=== PATIENT | male | born 1975 | race Caucasian/White ===

== ENCOUNTER 2021-10-29 17:11 | Emergency (ER) | payer BC, MEDICAID, OTHER ==
--- NOTE | 2021-10-29 18:07 | EDM.PDOC ---
ED HPI GENERAL MEDICAL PROBLEM - General Chief Complaint: General Stated Complaint: covid positive /fatigue and fever no appetite Time Seen by Provider: 10/29/21 18:00 Source of Information: Reports: Patient History Limitations: Reports: No Limitations - History of Present Illness INITIAL COMMENTS - FREE TEXT/NARRATIVE: 46-year-old male diagnosed with Covid 5 days ago, has had symptoms for 7 days. He is scheduled for monoclonal antibody therapy tomorrow. He has wheezing but is not significantly short of breath, O2 saturations 92 to 97%. He called the outpatient clinic this afternoon to find out what time he was supposed to come in and he commented to them that he "slept all day and feels awful, even had some brief stool incontinence in bed" so they told him to come to the emergency room. He looks ill but is physically stable. Onset: Gradual Duration: Day(s): (Symptoms for 7 days) Associated Symptoms: Reports: Cough, Fever/Chills, Malaise, Shortness of Breath, Weakness. Denies: Nausea/Vomiting - Related Data Allergies Allergy/AdvReac Type Severity Reaction Status Date / Time No Known Allergies Allergy Verified 10/29/21 17:41 Home Meds: Home Meds Azithromycin [Zithromax] 250 mg PO DAILY 10/29/21 [History] Sertraline [Zoloft] 50 mg PO BEDTIME 10/29/21 [History] Vitamin D3 5000 5,000 units PO DAILY 10/29/21 [History] dilTIAZem HCL [Dilt-Xr] 180 mg PO DAILY 10/29/21 [History] lisinopriL [Lisinopril] 40 mg PO DAILY 10/29/21 [History] methylPREDNISolone [Methylprednisolone] 4 mg PO TID 10/29/21 [History] Past Medical History Cardiovascular History: Reports: Hypertension Psychiatric History: Reports: Depression - Infectious Disease History Infectious Disease History: Reports: Novel Coronavirus - Past Surgical History Musculoskeletal Surgical History: Reports: Arthroscopic Knee Social & Family History - Tobacco Use Tobacco Use Status *Q: Never Tobacco User - Recreational Drug Use Recreational Drug Use: No ED ROS GENERAL - Review of Systems Review Of Systems: See Below Constitutional: Reports: Fever, Chills, Malaise, Decreased Appetite HEENT: Denies: Throat Pain Respiratory: Reports: Shortness of Breath, Wheezing, Cough Cardiovascular: Denies: Chest Pain GI/Abdominal: Reports: Diarrhea. Denies: Abdominal Pain Musculoskeletal: Reports: Muscle Pain (Generalized muscle aches) Skin: Reports: No Symptoms Neurological: Reports: Weakness Psychiatric: Reports: No Symptoms ED EXAM, GENERAL - Physical Exam Exam: See Below Exam Limited By: No Limitations General Appearance: Alert, No Apparent Distress Head: Atraumatic Respiratory/Chest: Wheezing (Diffuse expiratory wheezes, underlying good air movement) Cardiovascular: Regular Rate, Rhythm. No: Tachycardia GI/Abdominal: Soft, Non-Tender Extremities: Normal Inspection Neurological: Alert, Oriented Psychiatric: Flat Affect Skin Exam: Warm, Dry Course - Vital Signs Last Recorded V/S: Last Vital Signs Temp 95.8 F L 10/29/21 17:34 Pulse 97 10/29/21 17:34 Resp 16 10/29/21 17:34 BP 107/69 10/29/21 17:34 Pulse Ox 92 L 10/29/21 17:34 - Re-Assessments/Exams Free Text/Narrative Re-Assessment/Exam: 10/29/21 18:11 Patient was discharged with an albuterol inhaler to use 2 puffs every 4-6 hours. He can continue taking his Zithromax and should return for his monoclonal antibody therapy tomorrow. He can return sooner if he develops significant increase in shortness of breath. Departure - Departure Time of Disposition: 18:15 Disposition: Home, Self-Care 01 Clinical Impression: COVID-19 - Discharge Information Instructions: COVID-19 Referrals: Héctor Chavez Sr, MD [Primary Care Provider] - Forms: ED Department Discharge Care Plan Goals: Continue your medications, return if significant increase in shortness of breath otherwise return tomorrow for a monoclonal antibody therapy as scheduled. Sepsis Event Note (ED) - Evaluation Sepsis Screening Result: No Definite Risk - Focused Exam Vital Signs: Vital Signs Temp Pulse Resp BP Pulse Ox 10/29/21 17:34 95.8 F L 97 16 107/69 92 L
== END 2021-10-29 18:34 | disposition home or self-care (01) ==
LOC: JP.ED 17:11
DX: U07.1 COVID-19 (principal); I10 Essential (primary) hypertension; Z79.899 Other long term (current) drug therapy
CPT/HCPCS: 99284

== ENCOUNTER 2021-10-30 11:50 | Emergency (ER) | payer BC ==
[2021-10-30] MEDS ORDERED: Dexamethasone 2 MG Tab PO ONE (13:04)
--- NOTE | 2021-10-30 13:20 | EDM.PDOC ---
ED HPI GENERAL MEDICAL PROBLEM - General Chief Complaint: Respiratory Problem Stated Complaint: MEDICAL Time Seen by Provider: 10/30/21 12:47 Source of Information: Reports: Patient, RN Notes Reviewed History Limitations: Reports: No Limitations - History of Present Illness INITIAL COMMENTS - FREE TEXT/NARRATIVE: 46-year-old gentleman presents to the emergency department from the outpatient surgery center for being hypoxic. He is currently on day 7 symptoms of Covid did receive his monoclonal antibody treatment today initial evaluation he was 91% receive the treatment however during evaluation found to be hypoxic oxygen saturation 85% brought to the emergency department for further evaluation. He does respond to oxygen 2 L brings him to 94%. He is currently taking prednisone and azithromycin per his primary care provider. - Related Data Allergies Allergy/AdvReac Type Severity Reaction Status Date / Time No Known Allergies Allergy Verified 10/30/21 12:43 Home Meds: Home Meds Azithromycin [Zithromax] 250 mg PO DAILY 10/29/21 [History] Sertraline [Zoloft] 50 mg PO BEDTIME 10/29/21 [History] Vitamin D3 5000 5,000 units PO DAILY 10/29/21 [History] dilTIAZem HCL [Dilt-Xr] 180 mg PO DAILY 10/29/21 [History] lisinopriL [Lisinopril] 40 mg PO DAILY 10/29/21 [History] methylPREDNISolone [Methylprednisolone] 4 mg PO TID 10/29/21 [History] Past Medical History Cardiovascular History: Reports: Hypertension Psychiatric History: Reports: Depression Endocrine/Metabolic History: Reports: Obesity/BMI 30+ - Infectious Disease History Infectious Disease History: Reports: Novel Coronavirus - Past Surgical History Musculoskeletal Surgical History: Reports: Arthroscopic Knee Social & Family History - Tobacco Use Tobacco Use Status *Q: Never Tobacco User ED ROS GENERAL - Review of Systems Review Of Systems: See Below Constitutional: Reports: No Symptoms HEENT: Reports: No Symptoms Respiratory: Reports: Shortness of Breath Cardiovascular: Reports: No Symptoms GI/Abdominal: Reports: No Symptoms ED EXAM, GENERAL - Physical Exam Exam: See Below Exam Limited By: No Limitations General Appearance: Alert, WD/WN, No Apparent Distress Respiratory/Chest: No Respiratory Distress, Lungs Clear, Normal Breath Sounds, No Accessory Muscle Use, Chest Non-Tender Cardiovascular: Regular Rate, Rhythm, No Murmur Course - Vital Signs Last Recorded V/S: Last Vital Signs Temp 98.6 F 10/30/21 12:42 Pulse 108 H 10/30/21 14:37 Resp 16 10/30/21 12:42 BP 103/53 L 10/30/21 14:37 Pulse Ox 93 L 10/30/21 14:37 - Orders/Labs/Meds Orders: Active Orders 24 hr Category Date Time Status HEPATIC FUNCTION PANEL,HFP [CHEM] DAILY Lab 10/31/21 14:45 Ordered HEPATIC FUNCTION PANEL,HFP [CHEM] DAILY Lab 11/01/21 14:45 Ordered HEPATIC FUNCTION PANEL,HFP [CHEM] DAILY Lab 11/02/21 14:45 Ordered HEPATIC FUNCTION PANEL,HFP [CHEM] DAILY Lab 11/03/21 14:45 Ordered Remdesivir 200 mg Med 10/30/21 14:43 Active Sodium Chloride 0.9% [Normal Saline] 250 ml IV ONETIME Isolation [COMM] Stat Oth 10/30/21 14:43 Ordered Medication Orders Remdesivir 200 mg/ Sodium (Chloride) 250 mls @ 250 mls/hr IV ONETIME ONE Stop: 10/30/21 15:42 Last Admin: 10/30/21 15:25 Dose: 250 mls/hr Documented by: PREILOR Labs: Laboratory Tests 10/30/21 10/30/21 10/30/21 Range/Units 13:15 13:18 13:18 WBC 6.4 (4.5-11.0) K/uL RBC 5.69 (4.30-5.90) M/uL Hgb 15.5 H (12.0-15.0) g/dL Hct 46.3 (40.0-54.0) % MCV 81 (80-98) fL MCH 27 (27-31) pg MCHC 34 (32-36) % Plt Count 205 (150-400) K/uL Add Manual Diff Yes Neutrophils % (Manual) 77 H (36-66) % Lymphocytes % (Manual) 13 L (24-44) % Monocytes % (Manual) 10 H (2-6) % Atypical Lymphocytes Rare Sodium 132 L (140-148) mmol/L Potassium 4.3 (3.6-5.2) mmol/L Chloride 92 L (100-108) mmol/L Carbon Dioxide 31 (21-32) mmol/L Anion Gap 13.3 (5.0-14.0) mmol/L BUN 25 H (7-18) mg/dL Creatinine 1.3 (0.8-1.3) mg/dL Est Cr Clr Drug Dosing 86.67 mL/min Estimated GFR (MDRD) 60 (>60) Glucose 104 (74-106) mg/dL Lactic Acid (0.4-2.0) mmol/L Calcium 8.3 L (8.5-10.1) mg/dL Total Bilirubin 0.5 0.5 (0.2-1.0) mg/dL Direct Bilirubin 0.19 0.20 (0.0-0.2) mg/dL Indirect Bilirubin 0.31 0.30 AST 50 H 48 H (15-37) U/L ALT 37 36 (12-78) U/L Alkaline Phosphatase 81 80 (46-116) U/L C-Reactive Protein 8.72 H (0.0-0.3) mg/dL Total Protein 7.0 7.0 (6.4-8.2) g/dL Albumin 2.9 L 2.9 L (3.4-5.0) g/dL Globulin 4.1 H 4.1 H (2.3-3.5) g/dL Albumin/Globulin Ratio 0.7 L 0.7 L (1.2-2.2) 12// Range/Units 13:18 WBC (4.5-11.0) K/uL RBC (4.30-5.90) M/uL Hgb (12.0-15.0) g/dL Hct (40.0-54.0) % MCV (80-98) fL MCH (27-31) pg MCHC (32-36) % Plt Count (150-400) K/uL Add Manual Diff Neutrophils % (Manual) (36-66) % Lymphocytes % (Manual) (24-44) % Monocytes % (Manual) (2-6) % Atypical Lymphocytes Sodium (140-148) mmol/L Potassium (3.6-5.2) mmol/L Chloride (100-108) mmol/L Carbon Dioxide (21-32) mmol/L Anion Gap (5.0-14.0) mmol/L BUN (7-18) mg/dL Creatinine (0.8-1.3) mg/dL Est Cr Clr Drug Dosing mL/min Estimated GFR (MDRD) (>60) Glucose (74-106) mg/dL Lactic Acid 1.2 (0.4-2.0) mmol/L Calcium (8.5-10.1) mg/dL Total Bilirubin (0.2-1.0) mg/dL Direct Bilirubin (0.0-0.2) mg/dL Indirect Bilirubin AST (15-37) U/L ALT (12-78) U/L Alkaline Phosphatase (46-116) U/L C-Reactive Protein (0.0-0.3) mg/dL Total Protein (6.4-8.2) g/dL Albumin (3.4-5.0) g/dL Globulin (2.3-3.5) g/dL Albumin/Globulin Ratio (1.2-2.2) Meds: Medications Generic Name Dose Route Start Last Admin Trade Name Freq PRN Reason Stop Dose Admin Remdesivir 200 mg/ Sodium 250 mls @ 250 mls/hr 10/30/21 14:43 10/30/21 15:25 Chloride IV 10/30/21 15:42 250 mls/hr ONETIME ONE Administration Discontinued Medications Generic Name Dose Route Start Last Admin Trade Name Freq PRN Reason Stop Dose Admin Dexamethasone 6 mg 10/30/21 13:04 10/30/21 13:13 Dexamethasone 2 Mg Tab PO 10/30/21 13:05 6 mg ONETIME ONE Administration Departure - Departure Time of Disposition: 15:44 Disposition: DC/Tfer to Acute Hospital 02 Condition: Fair Clinical Impression: COVID-19 - Discharge Information Referrals: PCP,Unknown [Primary Care Provider] - Forms: ED Department Discharge Sepsis Event Note (ED) - Evaluation Sepsis Screening Result: No Definite Risk - Focused Exam Vital Signs: Vital Signs Temp Pulse Resp BP Pulse Ox 10/30/21 14:37 108 H 103/53 L 93 L 10/30/21 13:28 109 H 122/62 94 L 10/30/21 13:08 113 H 110/56 L 95 10/30/21 12:42 98.6 F 121 H 16 105/75 88 L 10/30/21 12:30 98.6 F 121 H 16 105/75 88 L - My Orders Last 24 Hours: My Active Orders 10/30/21 14:43 Remdesivir 200 mg Sodium Chloride 0.9% [Normal Saline] 250 ml IV ONETIME Isolation [COMM] Stat 10/31/21 14:45 HEPATIC FUNCTION PANEL,HFP [CHEM] DAILY 11/01/21 14:45 HEPATIC FUNCTION PANEL,HFP [CHEM] DAILY 11/02/21 14:45 HEPATIC FUNCTION PANEL,HFP [CHEM] DAILY 11/03/21 14:45 HEPATIC FUNCTION PANEL,HFP [CHEM] DAILY - Assessment/Plan Last 24 Hours: My Active Orders 10/30/21 14:43 Remdesivir 200 mg Sodium Chloride 0.9% [Normal Saline] 250 ml IV ONETIME Isolation [COMM] Stat 10/31/21 14:45 HEPATIC FUNCTION PANEL,HFP [CHEM] DAILY 11/01/21 14:45 HEPATIC FUNCTION PANEL,HFP [CHEM] DAILY 11/02/21 14:45 HEPATIC FUNCTION PANEL,HFP [CHEM] DAILY 11/03/21 14:45 HEPATIC FUNCTION PANEL,HFP [CHEM] DAILY Plan: Assessment Acuity = acute Site and laterality = hypoxia viral syndrome Etiology = COVID-19 Manifestations = none Location of injury = Home Lab values = CBC unremarkable, sodium low at 132 consistent hyponatremia lactic acid normal 1.2 AST slightly elevated 48 CRP 8.72 Plan In the emergency department he remained hypoxic he did respond to 2 L of oxygen 9394% he was given dexamethasone today as well as 200 mg remdesivir remained on oxygen while in the ED there was some aspects of confusion he did call his and state that he was sitting in a hard chair even though he is in the ER [facility]. We have no beds at our facility I did call [facility] also on diversion [facility] on diversion called [facility] they do have a bed I spoke with Dr. Majnao at 1530 kindly accepted the patient in transfer will be transferred via EMS ground will continue to remain on O2 during transport currently has remdesivir running This note was dictated using [employer] voice recognition software please call with any questions on syntax or grammar.
[2021-10-30] MEDS ORDERED: REMDESIVIR 200 MG in Sodium Chloride 0.9% 250 ML IV ONE (14:43)
== END 2021-10-30 16:16 ==
LOC: JP.ED 11:50
DX: U07.1 COVID-19 (principal); I10 Essential (primary) hypertension; E66.9 Obesity, unspecified; Z68.42 Body mass index [BMI] 45.0-49.9, adult; Z79.899 Other long term (current) drug therapy
CPT/HCPCS: 36415; 80048; 80076; 83605; 85025; 86140; 96365; 99284; J7050; J8540